=== PATIENT | male | born 1985 | race Caucasian/White ===

== ENCOUNTER 2025-03-08 18:11 | Emergency (ER) | payer OTHER ==
[~2025-03-08] VITALS: Ht 172.7 cm; Wt 77.0 kg
[2025-03-08 18:20] VITALS: O2SAT 99
[2025-03-08] MEDS: ACETAMINOPHEN 325MG TABLET PO ONE (20:12)
[2025-03-08] MEDS: IBUPROFEN 600MG TABLET PO ONE (20:12)
[2025-03-08] MEDS: METHOCARBAMOL 750MG TABLET PO SCH (20:13)
[2025-03-08] MEDS ORDERED: LIDO-53 TP (20:37)
[2025-03-08] MEDS ORDERED: METH-653 MT (20:37)
[2025-03-08] MEDS ORDERED: IBUP-2028 MT (20:37)
[2025-03-08 20:49] VITALS: BP 130/87; PULSE 65; RESP 15; TEMP 37.1; O2SAT 99
== END 2025-03-08 20:55 | disposition home or self-care (01) ==
LOC: ER 18:11
DX: M47.812 Spondylosis without myelopathy or radiculopathy, cervical region (principal); V49.9XXA Car occupant (driver) (passenger) injured in unspecified traffic accident, initial encounter; Y93.89 Activity, other specified; Y92.89 Other specified places as the place of occurrence of the external cause; Y99.8 Other external cause status
CPT/HCPCS: 71045; 72040; 72100; 99284